=== PATIENT | male | born 1980 | race Caucasian/White ===

== ENCOUNTER 2018-11-20 06:42 | Emergency (ER) | payer OTHER, SELFPAY ==
[2018-11-20 06:43] VITALS: BP 133/79; PULSE 64; RESP 18; TEMP 36.6; O2SAT 97; BMI 20.2
[2018-11-20 07:05] LABS: Absolute Lymphocyte Count 2.62 X10^3/uL (0.83-4.51); Absolute Neutrophil Count 4.3 X10^3/uL (2.0-7.7); Basophil# 0.03 X10^3/uL; Basophil% 0.4 % (0-1); Eosinophil# 0.12 X10^3/uL; Eosinophils% 1.6 % (0-5); Hematocrit 43.8 % (40-54); Hemoglobin 15.1 g/dL (13.0-16.5); Lymphocyte # 2.62 X10^3/ul (4.0); Lymphocyte % 34.3 % (19-41); Mean Corp Hgb Conc 34.5 g/dL (32-36); Mean Corpuscular Hgb 30.7 pg (27.0-32.0); Mean Platelet Vol. 9.5 fl (6.2-12.0); Monocyte# 0.59 X10^3/uL; Monocyte% 7.7 % (0-10); NRBC Flagged by Analyzer 0 % (0-5); Neutrophil # 4.26 X10^3/uL (2.7-7.7); Neutrophil % 55.7 % (47-70); Platelet Count 252 K/mm3 (150-450); RBC Distribution Width CV 11.9 % (11.6-14.6); RBC Distribution Width SD 38.5 fl (35.1-43.9); Red Blood Count 4.92 M/mm3 (4.6-6.2); White Blood Count 7.6 K/mm3 (4.4-11.0)
--- NOTE | 2018-11-20 07:10 | CT_ITS ---
STUDY: CT ABDOMEN AND PELVIS WITHOUT CONTRAST REASON FOR EXAM: Male, 38 years old. Left-sided flank pain. RADIATION DOSAGE (If Supplied By Facility): CTDIvol = ( 6.16 ) mGy, DLP = ( 303.04 ) mGycm TECHNIQUE: Transaxial images were obtained from the dome of the diaphragm to the symphysis pubis without oral contrast, and without intravenous contrast. Sagittal and coronal images were reconstructed. Individualized dose optimization techniques were used for this CT. COMPARISON: None. FINDINGS: The visualized lung bases are unremarkable. The visualized portions of the heart are within normal limits. Normal liver. Normal gallbladder and extrahepatic biliary system. Normal spleen. Normal pancreas. Normal bilateral adrenal glands. Normal right kidney. There is mild left-sided hydronephrosis and hydroureter secondary to distal ureteral calculus measuring approximately 6 mm in greatest dimension. Normal visualized stomach. There is no evidence for dilated bowel, ascites or pneumoperitoneum. The small bowel has a grossly normal appearance. Stool is visible throughout the colon with scattered diverticula. The appendix is visualized and appears normal. Normal abdominal aorta. There is venous distention of the inferior vena cava (IVC). Normal retroperitoneum. Normal urinary bladder. Normal visualized prostate gland. Normal abdominal wall. Normal osseous structures. CT/Abdomen/Pelvis without Cont IMPRESSION: Mild left-sided hydronephrosis and hydroureter secondary to a distal ureteral calculus. Electronically Signed: Lauren Steele MD at 9:26 EDT , Service support ,
--- NOTE | 2018-11-20 07:13 | ED.VISSUMM ---
- ER Visit Summary Date of Service: 11/20/18 Chief Complaint: Left flank pain History of Present Illness: The patient is a 38 M female with past medical or surgical history. Around 5 AM this morning he had sudden onset of left flank pain radiating down to his left lower quadrant around from his back. Associated nausea and vomiting. No diarrhea. No fever. No trauma. No prior history. He denies any recent hematuria no dysuria. Physical Examination: Male up ambulating and pain. Father present in the room. Vital signs are stable and afebrile. HEENT exam unremarkable. Neck nontender. Lungs clear to auscultation. Heart regular rhythm rate about 65. Abdomen is soft and nontender normal bowel sounds without peritoneal signs. No hernias or masses. No signs of obstruction. Patient is moving all 4 extremities. Neurovascular intact. No edema. Back nontender. Neurologically he is awake and alert with no focal motor deficits. Test Results: CBC normal white count 7. Hemoglobin 13. Electrolytes normal normal creatinine and gap. CT flank study without contrast shows a distal left ureteral calculi with hydronephrosis. Radiologist read the left distal ureteral calculi as about 6 mm. Emergency Department Course and Treatment: Patient treated with IV fluids, morphine, Toradol and Zofran. CAT scan labs and urinalysis will be obtained. Multiple repeat exams the patient is doing well. His pain is resolving with the IV medications as has his nausea. Treatment Plan: [place] and/or Toradol for pain. Fluids and rest. Strain urine for stone. Return if intractable pain, vomiting or fever. Disposition: Discharge Impression: Acute left flank pain secondary to acute ureteral calculi This note was generated with [employer] dictation software. It may contain incorrect words, spelling, and punctuation that were not noted in review of the chart prior to signing ED Disposition - Plan for ED Patient: Disposition: Home or Assisted Living Instructions: KIDNEY STONE w/ Colic Prescriptions: Hydrocodone Bitart/Apap 5-325 [[place] 5MG-325MG] 1 tab PO Q4H PRN PRN 2 Days #14 tab PRN Reason: Pain Prescription Printed Ketorolac [Toradol] 10 mg PO Q4H #10 tab Prescription Printed Ondansetron [Zofran Odt] 4 mg PO Q8H PRN PRN #10 tab PRN Reason: Nausea Prescription Printed Referrals: Nemesio Fried MD [STAFF PHYSICIAN] - 1 Week if not improving Additional Instructions: Plenty of fluids and rest. Strain your urine to see if you pass the stone. Return if intractable pain, intractable vomiting or fever. Follow-up with urologist as needed. [place] for severe pain otherwise Toradol or Motrin but not both.
[2018-11-20 07:16] LABS: Anion Gap 6 (5-15); BUN 17 mg/dL (7-18); Calcium,Total 8.7 mg/dL (8.5-10.1); Chloride 108 mmol/L (98-107); Creatinine, Serum 1.06 mg/dL (0.70-1.30); EST Glomerular Filtration Rate 83 mL/min (>60); Est Glom Filt Rate - Afr Amer 101 mL/min (>60); Estimated Creatinine Clearance 76.93 ml/min; Glucose 135 mg/dL (74-106); Potassium 3.7 mmol/L (3.5-5.1); Sodium Level 142 mmol/L (136-145)
[2018-11-20] MEDS: Ketorolac 30 MG/ML Syringe IV (07:16)
[2018-11-20] MEDS: 0.9% Normal Saline 1,000 ML 1000 ML IV (07:16)
[2018-11-20] MEDS: morphine 8 MG/ML Syringe 6 MG IV ×2 (07:16→10:01)
[2018-11-20] MEDS: Ondansetron 4 MG/2 ML Vial IV ×2 (07:17→10:01)
--- NOTE | 2018-11-20 08:59 | ED.DEP ---
ED Disposition - Plan for ED Patient: Disposition: Home or Assisted Living Instructions: KIDNEY STONE w/ Colic Prescriptions: Hydrocodone Bitart/Apap 5-325 [[place] 5MG-325MG] 1 tab PO Q4H PRN PRN 2 Days #14 tab PRN Reason: Pain Prescription Printed Ketorolac [Toradol] 10 mg PO Q4H #10 tab Prescription Printed Ondansetron [Zofran Odt] 4 mg PO Q8H PRN PRN #10 tab PRN Reason: Nausea Prescription Printed Referrals: Nemesio Fried MD [STAFF PHYSICIAN] - 1 Week if not improving Additional Instructions: Plenty of fluids and rest. Strain your urine to see if you pass the stone. Return if intractable pain, intractable vomiting or fever. Follow-up with urologist as needed. [place] for severe pain otherwise Toradol or Motrin but not both.
[2018-11-20 10:09] VITALS: BP 125/78; PULSE 85; RESP 18; O2SAT 99
== END 2018-11-20 10:13 | disposition home or self-care (01) ==
PROVIDERS: Emergency Medicine; Emergency Provider Emergency Medicine; Family Provider Family Medicine; PCP Family Medicine
DX: N13.2 Hydronephrosis with renal and ureteral calculous obstruction (principal)
CPT/HCPCS: 74176; 80048; 85025; 96361; 96374; 96375; 96376; 99283; J7030; A4216; J2405

== ENCOUNTER 2018-12-02 08:52 | Day surgery (SDC) | payer OTHER, SELFPAY ==
--- NOTE | 2018-12-02 09:10 | RAD_ITS ---
STUDY: X-RAY - ABDOMEN/PELVIS REASON FOR EXAM: Male, 38 years old. Abdominal pain. Left renal calculus. TECHNIQUE: Single AP view of the abdomen / pelvis. COMPARISON: None. FINDINGS: Normal visualized lung bases. There is an abundance of fecal material throughout the colon. The visualized liver, spleen and kidneys are grossly normal in size and morphology. Findings suggestive of a 3 mm calculus at the left ureterovesical junction. There are calcified phleboliths in the pelvis. Normal visualized osseous structures. RAD/Abdomen Single View IMPRESSION: Findings suggestive of a 3 mm calculus at the left ureterovesical junction. Electronically Signed: Oseas Edge, at 10:06 EDT , Service support ,
--- NOTE | 2018-12-02 09:45 | CT_ITS ---
STUDY: CT ABDOMEN AND PELVIS WITHOUT CONTRAST REASON FOR EXAM: Male, 38 years old. History of left kidney stone. RADIATION DOSAGE (If Supplied By Facility): CTDIvol = ( 6.25 ) mGy, DLP = ( 306.23 ) mGycm TECHNIQUE: Transaxial images were obtained from the dome of the diaphragm to the symphysis pubis without oral contrast, and without intravenous contrast. Sagittal and coronal images were reconstructed. Individualized dose optimization techniques were used for this CT. COMPARISON: Comparison is made with prior examination dated November 20, 2018. FINDINGS: The visualized lung bases are unremarkable. The visualized portions of the heart are within normal limits. Normal liver. Normal gallbladder and extrahepatic biliary system. Normal spleen. Normal pancreas. Normal bilateral adrenal glands. Normal right kidney. Mild residual left hydronephrosis although there has been improvement. The previously seen calculus in the distal portion of the left ureter is now seen at the base of the bladder on the left side. This measures 3.9 mm. Normal visualized stomach. Normal small intestine. Normal colon. The appendix is visualized and appears normal. Normal abdominal aorta. Normal inferior vena cava. Normal retroperitoneum. Normal urinary bladder. Normal abdominal wall. Normal osseous structures. CT/Abdomen/Pelvis without Cont IMPRESSION: The previously seen calculus in the distal portion of the left ureter is not seen at the base of the bladder on the left side. Minimal residual left hydronephrosis and hydroureter. Electronically Signed: Oseas Edge, at 10:52 EDT , Service support ,
[2018-12-02 10:18] VITALS: BP 105/73; PULSE 71; RESP 16; TEMP 36.7; O2SAT 100; BMI 20.6
[2018-12-02] MEDS: Lactated Ringers 1,000 ML 100 ML IV ×2 (10:39→11:49)
[2018-12-02] MEDS: Cefazolin 2 GM in 0.9% Normal Saline 100 ML IV (10:45)
--- NOTE | 2018-12-02 11:16 | DCINST_ITS ---
- Discharge Diagnoses Current Active Problems: left ureteral calculi Reason(s) for Visit for Discharge Instructions: cysto, placement of left wire and left ESWL, NO Stent You will use the following diet at home:: Regular Your food should be the consistency of: Regular Discharge Activity: Return to Normal Activity, May not drive while taking narcotic pain medications. Allergies/Adverse Reactions: Allergies No Known Allergies Allergy (Verified 12/02/18 09:53) Medications to take at Discharge Hydrocodone/Acetaminophen [[place] 5-325 Tablet] 1 ea PO Q4H PRN PRN 5 Days #14 tab 12/02/18 The following prescriptions were given: Hydrocodone/Acetaminophen [[place] 5-325 Tablet] 1 ea PO Q4H PRN PRN 5 Days #14 tab PRN Reason: Pain Score 1-11/17 Prescription Printed Primary Care Physician: Yony Hunt III, MD [Primary Care Provider] - Test Results: Test results from this visit will be discussed in further detail at your follow- up appointment, if applicable. Please Follow Up With: Nemesio Fried MD When: a few weeks with a kub
--- NOTE | 2018-12-02 11:18 | PCM.OPRPT ---
Report of Operation Date of Procedure: 12/02/18 Pre-Operative Diagnosis: Left ureteral calculi in the distal left ureter Post-Operative Diagnosis: The same Surgery/Procedure Performed:: Cystoscopy and left ureteral catheter placement, left shockwave lithotripsy. Description of Surgical Findings:: 38-year-old male with a stone in the distal left ureter still stuck in the distal left ureter plan to proceed with shockwave lithotripsy today we did do a CAT scan to confirm and the stone was still in the distal left ureter the patient was not sure if he had passed it. Take the patient back to the operating room and underwent general anesthesia with placement of dorsolithotomy position the penis testicles are prepped and draped in usual effect fashion went into the urethra with a 19 [place] rigid cystourethroscope the entire length urethra is normal prostate was normal inside the bladder identified the left ureteral orifice which was inflamed and swollen and you can see the tip of the stone peeping out the ureteral opening I then used a wire to poke at the stone and then we used fluoroscopy and identified the stone clearly under fluoroscopy I then drained the bladder remove the scope and then we proceeded with shockwave lithotripsy and delivered at the thousand shockwaves to the stone in the distal left ureter and the stone broke up well after the treatment. Stone broke up completely, no stone seen under the fluoroscopy after treatment. No stent was placed patient's anesthetic was reversed taken back to PACU good condition plan to see him in a few weeks with a KUB. Type of Anesthesia:: General Drains: none - Admit VTE Documentation VTE Present on Admission: No VTE Mechan Device Prophylaxis: SCD's
[2018-12-02 11:24] VITALS: BP 105/73; BP 115/80; PULSE 71; RESP 18; TEMP 36.6; O2SAT 100
[2018-12-02 11:30] VITALS: BP 105/73; BP 109/77; PULSE 69; RESP 16; O2SAT 96
[2018-12-02 12:02] VITALS: BP 105/73; BP 109/80; PULSE 56; RESP 16; TEMP 36.2; O2SAT 100
[2018-12-02 12:34] VITALS: BP 105/73
== END 2018-12-02 12:39 | disposition home or self-care (01) ==
LOC: SDC 08:56 → AC 09:27
PROVIDERS: Family Provider Family Medicine; PCP Family Medicine; Referring Provider Urology; Visit Provider Urology
PROC: (CPT 50590; principal; 2018-12-02 10:50)
DX: N20.2 Calculus of kidney with calculus of ureter (principal); Z79.891 Long term (current) use of opiate analgesic
CPT/HCPCS: 00918; 52353; 74018; 74176; J7120; C1769; J2405

== ENCOUNTER 2019-11-15 08:39 | Emergency (ER) | payer OTHER, SELFPAY ==
[2019-11-15 08:40] VITALS: BP 125/70; PULSE 86; RESP 15; TEMP 36.4; O2SAT 100; BMI 19.0
[2019-11-15 08:44] VITALS: O2SAT 100
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
[2019-11-15] MEDS: Ibuprofen 400 MG Tablet PO (09:19)
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
[2019-11-15 10:16] VITALS: BP 119/78; PULSE 85; RESP 16; O2SAT 98
== END 2019-11-15 10:17 | disposition home or self-care (01) ==
PROVIDERS: Emergency Provider Emergency Medicine; PCP Family Medicine
DX: S06.0X0A Concussion without loss of consciousness, initial encounter (principal); S00.81XA Abrasion of other part of head, initial encounter; S80.211A Abrasion, right knee, initial encounter; V28.0XXA Motorcycle driver injured in noncollision transport accident in nontraffic accident, initial encounter; Y93.55 Activity, bike riding; Y92.410 Unspecified street and highway as the place of occurrence of the external cause; Y99.8 Other external cause status
CPT/HCPCS: 70450; 99284

== ENCOUNTER → 2023-01-06 | Outpatient (CLI) | payer OTHER, SELFPAY ==
[2023-01-06 07:58] LABS: Absolute Lymphocyte Count 1.93 X10^3/uL (0.83-4.51); Absolute Neutrophil Count 2.5 X10^3/uL (2.0-7.7); Basophil# 0.05 X10^3/uL; Hematocrit 46.5 % (40-54); Hemoglobin 15.2 g/dL (13.0-16.5); Lymphocyte # 1.93 X10^3/ul (0.83-4.51); Lymphocyte % 38.3 % (19-41); Mean Corp Hgb Conc 32.7 g/dL (32-36); Mean Corpuscular Hgb 30.3 pg (27.0-32.0); Mean Corpuscular Volume 92.8 fL (80-94); Mean Platelet Vol. 10.1 fl (6.2-12.0); Monocyte# 0.46 X10^3/uL; Monocyte% 9.1 % (0-10); NRBC Flagged by Analyzer 0 % (0-5); Neutrophil # 2.49 X10^3/uL (2.7-7.7); Neutrophil % 49.4 % (47-70); Platelet Count 266 K/mm3 (150-450); RBC Distribution Width CV 12.1 % (11.6-14.6); RBC Distribution Width SD 41.6 fl (35.1-43.9); Red Blood Count 5.01 M/mm3 (4.6-6.2)
[2023-01-06 10:20] LABS: Insulin 4.7 mU/L (2.6-37.6); Vitamin B12 291 pg/mL (211-911)
[2023-01-06 10:41] LABS: Hemoglobin A1c 5.3 % (3.8-5.6)
[2023-01-06 11:15] LABS: ALB/GLOB Ratio 1.2 RATIO (0.9-2.4); AST(SGOT) 19 U/L (15-37); Alanine Aminotransfer ALT/SGPT 29 U/L (16-61); Albumin, Serum 4.1 g/dL (3.2-5.0); Alkaline Phosphatase 37 U/L (45-117); Anion Gap 6 (5-15); BUN 14 mg/dL (7-18); BUN/Creat Ratio 15.8 RATIO (10-20); Calcium,Total 8.8 mg/dL (8.5-10.1); Chloride 108 mmol/L (98-107); Cholesterol 193 mg/dL (200); Creatinine, Serum 0.89 mg/dL (0.70-1.30); EST Glomerular Filtration Rate 100 mL/min (>60); Est Glom Filt Rate - Afr Amer 121 mL/min (>60); Estradiol 31.5 pg/mL; Free T3 3.1 pg/mL (2.18-3.98); Globulin 3.3 g/dL (2.2-4.2); Glucose 94 mg/dL (74-106); High Density Lipoprotein 55 mg/dL; PSA,Total - Annual Screen 0.94 ng/mL (0.00-4.00); Potassium 4.2 mmol/L (3.5-5.1); Protein, Total 7.4 g/dL (6.4-8.2); Sodium Level 142 mmol/L (136-145); T4 Free Direct 0.96 ng/dL (0.76-1.46); T4 Total, Thyroxin 6.1 ug/dL (4.5-12.1); Thyroid Stim Hormone (TSH) 1.61 uIU/mL (0.358-3.74); Triglycerides 117 mg/dL; Uric Acid 4.9 mg/dL (3.5-7.2); Very Low Density Lipoprotein 23 mg/dL (5-40)
[2023-01-06 11:36] LABS: CRP, High Sensitivity Cardiac < 0.16 mg/L
[2023-01-11 12:14] LABS: Testosterone, % Free 2.51 % (1.50-4.20); Testosterone, Free 19.13 ng/dL (5.00-21.00); Testosterone, Total 762 ng/dL (264-916)
== END | disposition home or self-care (01) ==
PROVIDERS: PCP Family Medicine; Referring Provider Family Medicine; Visit Provider Family Medicine
DX: E34.9 Endocrine disorder, unspecified (principal)
CPT/HCPCS: 36415; 80053; 80061; 82306; 82607; 82670; 83036; 83525; 84153; 84402; 84403; 84436; 84439; 84443; 84481; 84550; 85025; 86141; G0103